=== PATIENT | male | born 1995 | race Caucasian/White ===

== ENCOUNTER 2019-01-05 22:12 | Emergency (ER) | payer OTHER ==
[~2019-01-05] VITALS: Ht 170.2 cm; Wt 70.3 kg
[2019-01-06] MEDS ORDERED: KETO10TA2 PO (03:03)
== END 2019-01-06 03:09 | disposition home or self-care (01) ==
LOC: ER 22:12
DX: S00.83XA Contusion of other part of head, initial encounter (principal); S40.012A Contusion of left shoulder, initial encounter; V49.9XXA Car occupant (driver) (passenger) injured in unspecified traffic accident, initial encounter; Y93.89 Activity, other specified; Y92.488 Other paved roadways as the place of occurrence of the external cause; Y99.8 Other external cause status

== ENCOUNTER 2022-04-26 22:47 | Emergency (ER) | payer OTHER ==
[~2022-04-26] VITALS: Ht 167.6 cm; Wt 74.8 kg
[~2022-04-26 22:47] MED LIST: KETO10TA2 PO
[2022-04-27] MEDS ORDERED: TUSNEL LIQUID178 ML PO (02:17)
[2022-04-27] MEDS ORDERED: ZYRTEC10 M3 PO (02:17)
[2022-04-27] MEDS ORDERED: ALBUTEROL2.5 MG/3 M IH (02:17)
== END 2022-04-27 02:19 | disposition home or self-care (01) ==
LOC: ER 22:47 → EDBD 23:23 → ER 04-27 02:19
DX: J45.901 Unspecified asthma with (acute) exacerbation (principal); Z20.822 Contact with and (suspected) exposure to COVID-19